=== PATIENT | male | born 1960 | race Caucasian/White ===

== ENCOUNTER 2017-11-02 04:02 | Emergency (ER) | payer OTHER, BC | END 2017-11-02 09:06 | disposition home or self-care (01) | LOC: E/R 04:02 | DX: J06.9 Acute upper respiratory infection, unspecified (principal); B88.0 Other acariasis | CPT/HCPCS: 99284; Z7502 ==

== ENCOUNTER 2019-06-12 15:35 | Inpatient (IN) | payer OTHER ==
[2019-06-12 20:04] LABS: ADD MAN DIFF? NO
[2019-06-12 20:13] LABS: BASOPHILS % 0.3 % (0.0-2.0); EOSINOPHILS % 0.3 % (0.0-7.0); HEMATOCRIT 35.8 % (42.0-52.0); HEMOGLOBIN 11.4 g/dl (14.0-18.0); LYMPHOCYTES % 7.7 % (15.0-51.0); MEAN CORPUSCULAR HEMOGLOBIN 28.6 pg (29.0-33.0); MEAN CORPUSCULAR HGB CONC 31.8 g/dl (32.0-37.0); MEAN CORPUSCULAR VOLUME 89.9 fl (82.0-101.0); MEAN PLATELET VOLUME 9.3 fl (7.4-10.4); MONOCYTES % 7.6 % (0.0-11.0); NEUTROPHIL # 10.9 10^3/ul (1.6-7.5); NEUTROPHILS % 83.6 % (39.0-77.0); PLATELET COUNT 286 10^3/UL (140-415); RED BLOOD COUNT 3.98 10^6/ul (4.70-6.10); RED CELL DISTRIBUTION WIDTH 14.1 % (11.5-14.5)
[2019-06-12 20:18] LABS: ALANINE AMINOTRANSFERASE 29 IU/L (13-69); ALBUMIN/GLOBULIN RATIO 0.78; ALKALINE PHOSPHATASE 143 IU/L (42-121); ANION GAP 7 (5-13); ASPARTATE AMINO TRANSFERASE 63 IU/L (15-46); BILIRUBIN,INDIRECT 0.5 mg/dl (0-1.1); BILIRUBIN,TOTAL 0.5 mg/dl (0.2-1.3); BLOOD UREA NITROGEN 10 mg/dl (7-20); CALCIUM 9.5 mg/dl (8.4-10.2); CARBON DIOXIDE 31 mmol/L (21-31); CHLORIDE 98 mmol/L (97-110); CREATININE 0.81 mg/dl (0.61-1.24); Estimated GFR > 60 mL/min (>60); GLUCOSE 117 mg/dl (70-220); POTASSIUM 3.9 mmol/L (3.5-5.1); SODIUM 136 mmol/L (135-144); TOTAL PROTEIN 9.1 g/dl (6.1-8.1)
[2019-06-12 20:26] LABS: INR 1.08; PROTIME 14.1 Sec (11.9-14.9); PT RATIO 1.1
[2019-06-12 20:27] LABS: PARTIAL THROMBOPLASTIN TIME 34.3 Sec (23.0-35.0)
[2019-06-12] MEDS: CEFEPIME 2GM/50 ML (PMX) 50 ML IVPB (20:31)
[2019-06-12] MEDS: VANCOMYCIN 1 GM (PMX) 250 ML IVPB (20:57)
[2019-06-12] MEDS ORDERED: ONDANSETRON 4 MG INJ IV (21:00)
[2019-06-12] MEDS ORDERED: NACL 0.9% 3 ML SYG IV (21:00)
[2019-06-12] MEDS ORDERED: VANCOMYCIN IV PER PHARMACY XX (21:00)
[2019-06-12] MEDS ORDERED: DOCUSATE SODIUM 100 MG CAP PO (21:00)
[2019-06-13] MEDS: ACETAMINOPHEN 325 MG TAB PO (03:20)
[2019-06-13] MEDS: morphine 4 MG/ML VIAL IV ×3 (05:00→23:22)
[2019-06-13 06:09] LABS: ADD MAN DIFF? NO
[2019-06-13 06:12] LABS: WHITE BLOOD COUNT 14.1 10^3/ul (4.8-10.8)
[2019-06-13 06:12] LABS: BASOPHILS % 0.2 % (0.0-2.0); EOSINOPHILS # 0.1 10^3/ul (0.0-0.5); EOSINOPHILS % 0.6 % (0.0-7.0); HEMATOCRIT 35.3 % (42.0-52.0); HEMOGLOBIN 11.2 g/dl (14.0-18.0); LYMPHOCYTES % 7.3 % (15.0-51.0); MEAN CORPUSCULAR HEMOGLOBIN 29.1 pg (29.0-33.0); MEAN CORPUSCULAR HGB CONC 31.7 g/dl (32.0-37.0); MEAN CORPUSCULAR VOLUME 91.7 fl (82.0-101.0); MEAN PLATELET VOLUME 9.5 fl (7.4-10.4); MONOCYTES % 6.8 % (0.0-11.0); NEUTROPHILS % 84.6 % (39.0-77.0); PLATELET COUNT 261 10^3/UL (140-415); RED BLOOD COUNT 3.85 10^6/ul (4.70-6.10); RED CELL DISTRIBUTION WIDTH 14.1 % (11.5-14.5)
[2019-06-13 06:47] LABS: ALANINE AMINOTRANSFERASE 35 IU/L (13-69); ALBUMIN 3.6 g/dl (3.3-4.9); ALBUMIN/GLOBULIN RATIO 0.78; ALKALINE PHOSPHATASE 146 IU/L (42-121); ANION GAP 7 (5-13); ASPARTATE AMINO TRANSFERASE 60 IU/L (15-46); BILIRUBIN,INDIRECT 0.5 mg/dl (0-1.1); BILIRUBIN,TOTAL 0.5 mg/dl (0.2-1.3); BLOOD UREA NITROGEN 9 mg/dl (7-20); CALCIUM 9.2 mg/dl (8.4-10.2); CARBON DIOXIDE 29 mmol/L (21-31); CHLORIDE 101 mmol/L (97-110); CREATININE 0.72 mg/dl (0.61-1.24); Estimated GFR > 60 mL/min (>60); GLUCOSE 130 mg/dl (70-220); MAGNESIUM 2.1 mg/dl (1.7-2.5); POTASSIUM 4.6 mmol/L (3.5-5.1); SODIUM 137 mmol/L (135-144); TOTAL PROTEIN 8.2 g/dl (6.1-8.1)
[2019-06-13] MEDS: VANCOMYCIN 1 GM 250 ML IVPB ×2 (10:13→21:31)
[2019-06-13] MEDS: BISACODYL (EC) 5 MG TAB PO (10:41)
[2019-06-13 12:39] LABS: C-REACTIVE PROTEIN 39.6 mg/dl (0.0-0.9)
[2019-06-13 13:38] LABS: ERYTHROCYTE SEDIMENTATION RATE 113 mm/Hr (0-20)
[2019-06-13] MEDS: CEFEPIME 1GM/50 ML (PMX) 50 ML IVPB ×2 (15:01→20:32)
[2019-06-13] MEDS: HYDROCODONE/APAP (5/325) TAB PO (20:40)
[2019-06-14] MEDS: morphine 4 MG/ML VIAL IV ×5 (06:06→23:39)
[2019-06-14] MEDS: HYDROCODONE/APAP (5/325) TAB PO ×2 (08:18→16:50)
[2019-06-14] MEDS: CEFEPIME 1GM/50 ML (PMX) 50 ML IVPB ×2 (08:19→20:29)
[2019-06-14] MEDS: ENOXAPARIN 40 MG/0.4 ML SYG SC (08:24)
[2019-06-14] MEDS: HYDROXYCHLOROQUINE 200 MG TAB PO (09:00)
[2019-06-14 09:35] LABS: ADD MAN DIFF? NO
[2019-06-14 09:39] LABS: BASOPHILS % 0.4 % (0.0-2.0); EOSINOPHILS # 0.2 10^3/ul (0.0-0.5); EOSINOPHILS % 1.5 % (0.0-7.0); HEMATOCRIT 36.8 % (42.0-52.0); LYMPHOCYTES # 1.1 10^3/ul (0.8-2.9); LYMPHOCYTES % 10.5 % (15.0-51.0); MEAN CORPUSCULAR HEMOGLOBIN 28.6 pg (29.0-33.0); MEAN CORPUSCULAR HGB CONC 32.6 g/dl (32.0-37.0); MEAN CORPUSCULAR VOLUME 87.8 fl (82.0-101.0); MEAN PLATELET VOLUME 9.2 fl (7.4-10.4); MONOCYTE # 0.5 10^3/ul (0.3-0.9); MONOCYTES % 4.5 % (0.0-11.0); NEUTROPHIL # 8.9 10^3/ul (1.6-7.5); NEUTROPHILS % 82.1 % (39.0-77.0); PLATELET COUNT 347 10^3/UL (140-415); RED BLOOD COUNT 4.19 10^6/ul (4.70-6.10); RED CELL DISTRIBUTION WIDTH 13.8 % (11.5-14.5)
[2019-06-14 09:39] LABS: WHITE BLOOD COUNT 10.8 10^3/ul (4.8-10.8)
[2019-06-14 09:50] LABS: HEMOGLOBIN A1C 5.7 % (0-5.9)
[2019-06-14 09:57] LABS: PHOSPHORUS 3.7 mg/dl (2.5-4.9)
[2019-06-14 09:57] LABS: MAGNESIUM 1.8 mg/dl (1.7-2.5)
[2019-06-14] MEDS: VANCOMYCIN 1 GM 250 ML IVPB ×2 (09:57→21:18)
[2019-06-14 09:58] LABS: ANION GAP 8 (5-13); BLOOD UREA NITROGEN 10 mg/dl (7-20); CALCIUM 9.3 mg/dl (8.4-10.2); CARBON DIOXIDE 27 mmol/L (21-31); CHLORIDE 102 mmol/L (97-110); CREATININE 0.67 mg/dl (0.61-1.24); Estimated GFR > 60 mL/min (>60); GLUCOSE 180 mg/dl (70-220); POTASSIUM 4.1 mmol/L (3.5-5.1); SODIUM 137 mmol/L (135-144)
[2019-06-14 18:01] LABS: BARBITURATES Negative (NEGATIVE); BENZODIAZEPINES Negative (NEGATIVE); CANNABINOIDS Positive (NEGATIVE); COCAINE Negative (NEGATIVE)
[2019-06-14 18:06] LABS: AMPHETAMINE/METHAMPHETAMINE Positive (NEGATIVE); OPIATES Positive (NEGATIVE)
[2019-06-14 20:54] LABS: VANCOMYCIN,TROUGH 8.7 ug/ml (10.0-20.0)
[2019-06-14] MEDS: HYDROCORTISONE 1% 28.35 GM OINT TOP (21:23)
[2019-06-14] MEDS: ACETAMINOPHEN 325 MG TAB PO (22:11)
[2019-06-15] MEDS: oxyCODONE (CR) 15 MG TAB [oxyCONTIN] PO (02:38)
[2019-06-15] MEDS: morphine 4 MG/ML VIAL IV (04:50)
[2019-06-15 05:06] LABS: ADD MAN DIFF? NO
[2019-06-15 05:12] LABS: BASOPHIL # 0.1 10^3/ul (0.0-0.1); BASOPHILS % 0.9 % (0.0-2.0); EOSINOPHILS # 0.2 10^3/ul (0.0-0.5); EOSINOPHILS % 3.4 % (0.0-7.0); HEMATOCRIT 40.4 % (42.0-52.0); HEMOGLOBIN 13.1 g/dl (14.0-18.0); LYMPHOCYTES # 1.2 10^3/ul (0.8-2.9); LYMPHOCYTES % 17.2 % (15.0-51.0); MEAN CORPUSCULAR HEMOGLOBIN 27.9 pg (29.0-33.0); MEAN CORPUSCULAR HGB CONC 32.4 g/dl (32.0-37.0); MEAN CORPUSCULAR VOLUME 86.1 fl (82.0-101.0); MONOCYTE # 0.6 10^3/ul (0.3-0.9); NEUTROPHIL # 4.9 10^3/ul (1.6-7.5); NEUTROPHILS % 68.9 % (39.0-77.0); PLATELET COUNT 402 10^3/UL (140-415); RED BLOOD COUNT 4.69 10^6/ul (4.70-6.10); RED CELL DISTRIBUTION WIDTH 13.8 % (11.5-14.5)
[2019-06-15 05:36] LABS: ANION GAP 7 (5-13); BLOOD UREA NITROGEN 10 mg/dl (7-20); CALCIUM 9.5 mg/dl (8.4-10.2); CARBON DIOXIDE 30 mmol/L (21-31); CHLORIDE 102 mmol/L (97-110); CREATININE 0.73 mg/dl (0.61-1.24); Estimated GFR > 60 mL/min (>60); GLUCOSE 111 mg/dl (70-220); POTASSIUM 4.2 mmol/L (3.5-5.1); SODIUM 139 mmol/L (135-144)
[2019-06-15] MEDS: VANCOMYCIN 1.25 GM/NS 250 ML 250 ML IVPB ×2 (06:05→18:54)
[2019-06-15] MEDS ORDERED: METHADONE (1 MG/ML 5 ML PO UD SYG) PO (08:00)
[2019-06-15] MEDS: ENOXAPARIN 40 MG/0.4 ML SYG SC (09:00)
[2019-06-15] MEDS: HYDROXYCHLOROQUINE 200 MG TAB PO (09:00)
[2019-06-15] MEDS: METHADONE 10 MG TAB PO (09:41)
[2019-06-15] MEDS: CEFEPIME 1GM/50 ML (PMX) 50 ML IVPB ×2 (09:43→21:33)
[2019-06-15] MEDS: HYDROCORTISONE 1% 28.35 GM OINT TOP (09:44)
[2019-06-15] MEDS ORDERED: HYDROmorphONE 1 MG/5 ML IV SYRINGE IV ×2 (16:30)
[2019-06-15] MEDS ORDERED: FENTAnyl 50 MCG/ML VIAL IV ×2 (16:30)
[2019-06-15] MEDS ORDERED: ONDANSETRON 4 MG INJ IV (16:30)
[2019-06-15] MEDS ORDERED: DESFLURANE 15 MIN (16:30)
[2019-06-15] MEDS ORDERED: ROPIVACAINE 0.2% 20 ML VIAL ×2 (16:31→16:52)
[2019-06-15] MEDS ORDERED: PROPOFOL 20 ML (16:31)
[2019-06-15] MEDS ORDERED: MIDAZOLAM 1 MG/ML 2 ML INJ (16:31)
[2019-06-15] MEDS ORDERED: FENTAnyl 50 MCG/ML VIAL (16:37)
[2019-06-15] MEDS ORDERED: METOCLOPRAMIDE 10 MG INJ (16:48)
[2019-06-15] MEDS: HYDROmorphONE 1 MG/5 ML IV SYRINGE IV (17:52)
[2019-06-15] MEDS ORDERED: EPHEDrine 25 MG/5 ML SYG (17:58)
[2019-06-15] MEDS: FENTAnyl 50 MCG/ML VIAL IV (18:33)
[2019-06-15] MEDS: ACETAMINOPHEN 325 MG TAB PO (21:37)
[2019-06-15] MEDS: HYDROmorphONE 1 MG/ML SYG IV (22:26)
[2019-06-16] MEDS: HYDROmorphONE 1 MG/ML SYG IV ×6 (01:44→20:07)
[2019-06-16] MEDS: VANCOMYCIN 1.25 GM/NS 250 ML 250 ML IVPB ×2 (05:49→17:42)
[2019-06-16 06:04] LABS: ADD MAN DIFF? NO
[2019-06-16 06:15] LABS: WHITE BLOOD COUNT 6.7 10^3/ul (4.8-10.8)
[2019-06-16 06:15] LABS: BASOPHILS % 0.6 % (0.0-2.0); EOSINOPHILS # 0.2 10^3/ul (0.0-0.5); EOSINOPHILS % 2.5 % (0.0-7.0); HEMATOCRIT 41.5 % (42.0-52.0); HEMOGLOBIN 13.1 g/dl (14.0-18.0); LYMPHOCYTES # 1.3 10^3/ul (0.8-2.9); LYMPHOCYTES % 19.3 % (15.0-51.0); MEAN CORPUSCULAR HGB CONC 31.6 g/dl (32.0-37.0); MEAN CORPUSCULAR VOLUME 88.7 fl (82.0-101.0); MEAN PLATELET VOLUME 9.1 fl (7.4-10.4); MONOCYTE # 0.6 10^3/ul (0.3-0.9); MONOCYTES % 8.6 % (0.0-11.0); NEUTROPHIL # 4.5 10^3/ul (1.6-7.5); NEUTROPHILS % 66.3 % (39.0-77.0); PLATELET COUNT 354 10^3/UL (140-415); RED BLOOD COUNT 4.68 10^6/ul (4.70-6.10); RED CELL DISTRIBUTION WIDTH 13.8 % (11.5-14.5)
[2019-06-16 06:35] LABS: ANION GAP 6 (5-13); BLOOD UREA NITROGEN 12 mg/dl (7-20); CALCIUM 9.1 mg/dl (8.4-10.2); CARBON DIOXIDE 31 mmol/L (21-31); CHLORIDE 102 mmol/L (97-110); CREATININE 0.71 mg/dl (0.61-1.24); Estimated GFR > 60 mL/min (>60); GLUCOSE 107 mg/dl (70-220); POTASSIUM 4.4 mmol/L (3.5-5.1); SODIUM 139 mmol/L (135-144)
[2019-06-16] MEDS: HYDROXYCHLOROQUINE 200 MG TAB PO (08:16)
[2019-06-16] MEDS: HYDROCORTISONE 1% 28.35 GM OINT TOP (08:17)
[2019-06-16] MEDS: METHADONE 10 MG TAB PO ×3 (08:17→20:54)
[2019-06-16] MEDS: ENOXAPARIN 40 MG/0.4 ML SYG SC (08:25)
[2019-06-16] MEDS: CEFEPIME 1GM/50 ML (PMX) 50 ML IVPB ×2 (10:42→20:54)
[2019-06-16] MEDS: POLYETHYLENE GLYCOL 17 GM PACKET PO ×2 (11:30→15:30)
[2019-06-16] MEDS: ACETAMINOPHEN 325 MG TAB PO (14:04)
[2019-06-16] MEDS ORDERED: DOCUSATE SODIUM 100 MG CAP PO (15:30)
[2019-06-16 17:19] LABS: VANCOMYCIN,TROUGH 13.3 ug/ml (10.0-20.0)
[2019-06-17] MEDS: HYDROmorphONE 1 MG/ML SYG IV ×5 (03:11→20:06)
[2019-06-17] MEDS: VANCOMYCIN 1.25 GM/NS 250 ML 250 ML IVPB ×2 (05:46→17:46)
[2019-06-17 06:18] LABS: ADD MAN DIFF? NO
[2019-06-17 06:26] LABS: BASOPHIL # 0.1 10^3/ul (0.0-0.1); BASOPHILS % 0.8 % (0.0-2.0); EOSINOPHILS # 0.3 10^3/ul (0.0-0.5); EOSINOPHILS % 3.6 % (0.0-7.0); HEMOGLOBIN 12.7 g/dl (14.0-18.0); LYMPHOCYTES # 1.3 10^3/ul (0.8-2.9); LYMPHOCYTES % 18.5 % (15.0-51.0); MEAN CORPUSCULAR HEMOGLOBIN 28.2 pg (29.0-33.0); MEAN CORPUSCULAR HGB CONC 31.8 g/dl (32.0-37.0); MEAN CORPUSCULAR VOLUME 88.9 fl (82.0-101.0); MEAN PLATELET VOLUME 9.5 fl (7.4-10.4); MONOCYTE # 0.5 10^3/ul (0.3-0.9); MONOCYTES % 6.7 % (0.0-11.0); NEUTROPHIL # 4.8 10^3/ul (1.6-7.5); NEUTROPHILS % 66.1 % (39.0-77.0); PLATELET COUNT 396 10^3/UL (140-415); RED CELL DISTRIBUTION WIDTH 13.8 % (11.5-14.5)
[2019-06-17 06:26] LABS: WHITE BLOOD COUNT 7.3 10^3/ul (4.8-10.8)
[2019-06-17 07:15] LABS: ANION GAP 8 (5-13); BLOOD UREA NITROGEN 13 mg/dl (7-20); CALCIUM 9.2 mg/dl (8.4-10.2); CARBON DIOXIDE 29 mmol/L (21-31); CHLORIDE 100 mmol/L (97-110); CREATININE 0.72 mg/dl (0.61-1.24); Estimated GFR > 60 mL/min (>60); GLUCOSE 134 mg/dl (70-220); POTASSIUM 4.2 mmol/L (3.5-5.1); SODIUM 137 mmol/L (135-144)
[2019-06-17] MEDS: HYDROXYCHLOROQUINE 200 MG TAB PO ×2 (08:44→08:46)
[2019-06-17] MEDS: METHADONE 10 MG TAB PO ×3 (08:44→21:05)
[2019-06-17] MEDS: POLYETHYLENE GLYCOL 17 GM PACKET PO ×2 (08:48→10:30)
[2019-06-17] MEDS: CEFEPIME 1GM/50 ML (PMX) 50 ML IVPB ×2 (08:50→21:05)
[2019-06-17] MEDS: ENOXAPARIN 40 MG/0.4 ML SYG SC (08:52)
[2019-06-17] MEDS: HYDROCORTISONE 1% 28.35 GM OINT TOP (08:53)
[2019-06-17] MEDS: ACETAMINOPHEN 325 MG TAB PO (10:30)
[2019-06-18] MEDS: HYDROmorphONE 1 MG/ML SYG IV ×6 (01:23→21:11)
[2019-06-18] MEDS: VANCOMYCIN 1.25 GM/NS 250 ML 250 ML IVPB (06:14)
[2019-06-18 06:30] LABS: ADD MAN DIFF? NO
[2019-06-18 06:37] LABS: ABNORMAL IP MESSAGE 1; BASOPHIL # 0.1 10^3/ul (0.0-0.1); BASOPHILS % 1.4 % (0.0-2.0); EOSINOPHILS # 0.2 10^3/ul (0.0-0.5); EOSINOPHILS % 2.9 % (0.0-7.0); HEMOGLOBIN 12.9 g/dl (14.0-18.0); LYMPHOCYTES # 1.5 10^3/ul (0.8-2.9); LYMPHOCYTES % 18.8 % (15.0-51.0); MEAN CORPUSCULAR HEMOGLOBIN 28.5 pg (29.0-33.0); MEAN CORPUSCULAR HGB CONC 31.5 g/dl (32.0-37.0); MEAN CORPUSCULAR VOLUME 90.5 fl (82.0-101.0); MEAN PLATELET VOLUME 9.1 fl (7.4-10.4); MONOCYTE # 0.7 10^3/ul (0.3-0.9); MONOCYTES % 8.2 % (0.0-11.0); NEUTROPHILS % 62.1 % (39.0-77.0); PLATELET COUNT 407 10^3/UL (140-415); POSITIVE DIFF @See below; RED BLOOD COUNT 4.53 10^6/ul (4.70-6.10)
[2019-06-18 07:01] LABS: ANION GAP 6 (5-13); BLOOD UREA NITROGEN 14 mg/dl (7-20); CALCIUM 9.3 mg/dl (8.4-10.2); CARBON DIOXIDE 32 mmol/L (21-31); CHLORIDE 100 mmol/L (97-110); CREATININE 0.83 mg/dl (0.61-1.24); Estimated GFR > 60 mL/min (>60); GLUCOSE 109 mg/dl (70-220); POTASSIUM 4.4 mmol/L (3.5-5.1); SODIUM 138 mmol/L (135-144)
[2019-06-18 07:41] LABS: BAND NEUTROPHILS #M 0.4 10^3/ul (0.0-0.6); BAND NEUTROPHILS % (M) 6 % (0-4); BASOPHIL #M 0.1 10^3/ul (0.0-0.0); BASOPHILS % (M) 2 % (0-2); EOSINOPHILS % (M) 5 % (0-7); LYMPHOCYTES #M 1.5 10^3/ul (0.8-2.9); LYMPHOCYTES % (M) 19 % (15-51); MONOCYTE #M 0.6 10^3/ul (0.3-0.9); MONOCYTES % (M) 8 % (0-11); PLATELET ESTIMATE NORMAL; POLYCHROMASIA 1+ (0-0); PROMYELOCYTES % (M) 1 % (0-0); SEG NEUT #M 4.8 10^3/ul (1.6-7.5); SEGMENTED NEUTROPHILS (M) % 59 % (39-77); SMUDGE%M 8 % (0-0)
[2019-06-18] MEDS: METHADONE 10 MG TAB PO ×3 (08:29→22:47)
[2019-06-18] MEDS: CEFEPIME 1GM/50 ML (PMX) 50 ML IVPB (08:30)
[2019-06-18] MEDS: POLYETHYLENE GLYCOL 17 GM PACKET PO ×2 (08:30)
[2019-06-18] MEDS: HYDROXYCHLOROQUINE 200 MG TAB PO (08:31)
[2019-06-18] MEDS: ENOXAPARIN 40 MG/0.4 ML SYG SC (08:33)
[2019-06-18] MEDS: HYDROCORTISONE 1% 28.35 GM OINT TOP (08:34)
[2019-06-18] MEDS: ACETAMINOPHEN 325 MG TAB PO (10:37)
[2019-06-18] MEDS: TRIMETHOPRIM/SULFAMETHOX (DS) TAB PO ×2 (16:11→22:47)
[2019-06-19] MEDS: HYDROmorphONE 1 MG/ML SYG IV ×6 (04:28→21:23)
[2019-06-19 06:17] LABS: ADD MAN DIFF? NO
[2019-06-19 06:24] LABS: WHITE BLOOD COUNT 8.7 10^3/ul (4.8-10.8)
[2019-06-19 06:24] LABS: ABNORMAL IP MESSAGE 1; BASOPHIL # 0.1 10^3/ul (0.0-0.1); BASOPHILS % 0.9 % (0.0-2.0); EOSINOPHILS # 0.3 10^3/ul (0.0-0.5); HEMATOCRIT 42.6 % (42.0-52.0); HEMOGLOBIN 13.5 g/dl (14.0-18.0); LYMPHOCYTES # 1.8 10^3/ul (0.8-2.9); LYMPHOCYTES % 20.6 % (15.0-51.0); MEAN CORPUSCULAR HEMOGLOBIN 28.4 pg (29.0-33.0); MEAN CORPUSCULAR HGB CONC 31.7 g/dl (32.0-37.0); MEAN CORPUSCULAR VOLUME 89.7 fl (82.0-101.0); MEAN PLATELET VOLUME 9.3 fl (7.4-10.4); MONOCYTE # 0.6 10^3/ul (0.3-0.9); MONOCYTES % 6.7 % (0.0-11.0); NEUTROPHIL # 5.4 10^3/ul (1.6-7.5); NEUTROPHILS % 62.1 % (39.0-77.0); PLATELET COUNT 446 10^3/UL (140-415); POSITIVE DIFF @See below; RED BLOOD COUNT 4.75 10^6/ul (4.70-6.10); RED CELL DISTRIBUTION WIDTH 14.1 % (11.5-14.5)
[2019-06-19 06:48] LABS: ANION GAP 10 (5-13); BLOOD UREA NITROGEN 17 mg/dl (7-20); CALCIUM 9.7 mg/dl (8.4-10.2); CARBON DIOXIDE 31 mmol/L (21-31); CHLORIDE 96 mmol/L (97-110); CREATININE 1.05 mg/dl (0.61-1.24); Estimated GFR > 60 mL/min (>60); GLUCOSE 100 mg/dl (70-220); POTASSIUM 4.7 mmol/L (3.5-5.1); SODIUM 137 mmol/L (135-144)
[2019-06-19] MEDS: ACETAMINOPHEN 325 MG TAB PO ×2 (08:01→22:27)
[2019-06-19] MEDS: TRIMETHOPRIM/SULFAMETHOX (DS) TAB PO ×2 (08:58→20:43)
[2019-06-19] MEDS: METHADONE 10 MG TAB PO ×3 (08:58→20:45)
[2019-06-19] MEDS: HYDROXYCHLOROQUINE 200 MG TAB PO (09:00)
[2019-06-19] MEDS: POLYETHYLENE GLYCOL 17 GM PACKET PO ×2 (09:00)
[2019-06-19] MEDS: ENOXAPARIN 40 MG/0.4 ML SYG SC (09:00)
[2019-06-19] MEDS: HYDROCORTISONE 1% 28.35 GM OINT TOP (09:00)
[2019-06-19 10:59] LABS: ANISOCYTOSIS 1+ (0-0); BAND NEUTROPHILS #M 0.9 10^3/ul (0.0-0.6); BAND NEUTROPHILS % (M) 11 % (0-4); BASOPHIL #M 0.1 10^3/ul (0.0-0.0); BASOPHILS % (M) 2 % (0-2); EOSINOPHILS % (M) 4 % (0-7); GIANT THROMBO% (M) 1 % (0-0); LYMPHOCYTES #M 1.6 10^3/ul (0.8-2.9); LYMPHOCYTES % (M) 19 % (15-51); MONOCYTE #M 0.8 10^3/ul (0.3-0.9); MONOCYTES % (M) 10 % (0-11); MYELOCYTES #M 0.2 10^3/ul (0.0-0.0); MYELOCYTES % (M) 3 % (0-0); PLATELET ESTIMATE NORMAL; POIKILOCYTOSIS 1+ (0-0); POLYCHROMASIA 1+ (0-0); REACTIVE LYMPHOCYTES #M 1.1 10^3/ul (0.0-0.0); REACTIVE LYMPHOCYTES% (M) 13 % (0-0); SEG NEUT #M 3.4 10^3/ul (1.6-7.5); SEGMENTED NEUTROPHILS (M) % 38 % (39-77); SMUDGE%M 10 % (0-0)
[2019-06-20] MEDS: HYDROmorphONE 1 MG/ML SYG IV ×6 (02:51→20:36)
[2019-06-20 06:48] LABS: ADD MAN DIFF? NO
[2019-06-20 06:57] LABS: WHITE BLOOD COUNT 7.9 10^3/ul (4.8-10.8)
[2019-06-20 06:57] LABS: ABNORMAL IP MESSAGE 1; BASOPHIL # 0.1 10^3/ul (0.0-0.1); BASOPHILS % 1.5 % (0.0-2.0); EOSINOPHILS # 0.3 10^3/ul (0.0-0.5); EOSINOPHILS % 3.9 % (0.0-7.0); HEMATOCRIT 43.4 % (42.0-52.0); HEMOGLOBIN 13.6 g/dl (14.0-18.0); LYMPHOCYTES # 1.8 10^3/ul (0.8-2.9); MEAN CORPUSCULAR HEMOGLOBIN 28.5 pg (29.0-33.0); MEAN CORPUSCULAR HGB CONC 31.3 g/dl (32.0-37.0); MEAN PLATELET VOLUME 9.2 fl (7.4-10.4); MONOCYTE # 0.7 10^3/ul (0.3-0.9); MONOCYTES % 8.6 % (0.0-11.0); NEUTROPHIL # 4.5 10^3/ul (1.6-7.5); NEUTROPHILS % 56.1 % (39.0-77.0); PLATELET COUNT 422 10^3/UL (140-415); POSITIVE DIFF @See below; RED BLOOD COUNT 4.77 10^6/ul (4.70-6.10); RED CELL DISTRIBUTION WIDTH 14.2 % (11.5-14.5)
[2019-06-20 07:37] LABS: ANION GAP 11 (5-13); BLOOD UREA NITROGEN 20 mg/dl (7-20); CALCIUM 9.8 mg/dl (8.4-10.2); CARBON DIOXIDE 29 mmol/L (21-31); CHLORIDE 98 mmol/L (97-110); Estimated GFR > 60 mL/min (>60); GLUCOSE 95 mg/dl (70-220); POTASSIUM 5.1 mmol/L (3.5-5.1); SODIUM 138 mmol/L (135-144)
[2019-06-20] MEDS: POLYETHYLENE GLYCOL 17 GM PACKET PO ×2 (09:00→09:01)
[2019-06-20] MEDS: HYDROCORTISONE 1% 28.35 GM OINT TOP (09:00)
[2019-06-20] MEDS: HYDROXYCHLOROQUINE 200 MG TAB PO (09:01)
[2019-06-20] MEDS: METHADONE 10 MG TAB PO ×3 (09:01→20:35)
[2019-06-20] MEDS: TRIMETHOPRIM/SULFAMETHOX (DS) TAB PO ×2 (09:01→20:35)
[2019-06-20] MEDS: ENOXAPARIN 40 MG/0.4 ML SYG SC (09:05)
[2019-06-20 09:30] LABS: ANISOCYTOSIS 1+ (0-0); BAND NEUTROPHILS #M 0.3 10^3/ul (0.0-0.6); BAND NEUTROPHILS % (M) 5 % (0-4); BASOPHILS % (M) 1 % (0-2); EOSINOPHILS % (M) 4 % (0-7); LYMPHOCYTES #M 1.1 10^3/ul (0.8-2.9); LYMPHOCYTES % (M) 15 % (15-51); MONOCYTE #M 0.7 10^3/ul (0.3-0.9); MONOCYTES % (M) 9 % (0-11); MYELOCYTES #M 0.2 10^3/ul (0.0-0.0); MYELOCYTES % (M) 3 % (0-0); PLATELET ESTIMATE NORMAL; POLYCHROMASIA 1+ (0-0); PROMYELOCYTES % (M) 1 % (0-0); REACTIVE LYMPHOCYTES #M 0.8 10^3/ul (0.0-0.0); REACTIVE LYMPHOCYTES% (M) 11 % (0-0); SEG NEUT #M 4.1 10^3/ul (1.6-7.5); SEGMENTED NEUTROPHILS (M) % 51 % (39-77); SMUDGE%M 1 % (0-0)
[2019-06-20] MEDS: ACETAMINOPHEN 325 MG TAB PO (09:44)
[2019-06-21] MEDS: HYDROmorphONE 1 MG/ML SYG IV ×5 (00:24→19:44)
[2019-06-21] MEDS: ACETAMINOPHEN 325 MG TAB PO ×2 (02:42→20:40)
[2019-06-21 05:21] LABS: ADD MAN DIFF? NO
[2019-06-21 05:31] LABS: WHITE BLOOD COUNT 9.7 10^3/ul (4.8-10.8)
[2019-06-21 05:31] LABS: BASOPHIL # 0.1 10^3/ul (0.0-0.1); BASOPHILS % 0.8 % (0.0-2.0); EOSINOPHILS # 0.2 10^3/ul (0.0-0.5); HEMATOCRIT 42.4 % (42.0-52.0); HEMOGLOBIN 13.2 g/dl (14.0-18.0); LYMPHOCYTES # 2.1 10^3/ul (0.8-2.9); LYMPHOCYTES % 21.8 % (15.0-51.0); MEAN CORPUSCULAR HEMOGLOBIN 28.4 pg (29.0-33.0); MEAN CORPUSCULAR HGB CONC 31.1 g/dl (32.0-37.0); MEAN CORPUSCULAR VOLUME 91.2 fl (82.0-101.0); MEAN PLATELET VOLUME 9.3 fl (7.4-10.4); MONOCYTE # 0.8 10^3/ul (0.3-0.9); MONOCYTES % 8.2 % (0.0-11.0); NEUTROPHIL # 6.1 10^3/ul (1.6-7.5); NEUTROPHILS % 63.4 % (39.0-77.0); PLATELET COUNT 445 10^3/UL (140-415); RED BLOOD COUNT 4.65 10^6/ul (4.70-6.10); RED CELL DISTRIBUTION WIDTH 14.6 % (11.5-14.5)
[2019-06-21 05:56] LABS: ANION GAP 13 (5-13); BLOOD UREA NITROGEN 23 mg/dl (7-20); CALCIUM 9.6 mg/dl (8.4-10.2); CARBON DIOXIDE 28 mmol/L (21-31); CHLORIDE 97 mmol/L (97-110); CREATININE 1.17 mg/dl (0.61-1.24); Estimated GFR > 60 mL/min (>60); GLUCOSE 126 mg/dl (70-220); POTASSIUM 4.3 mmol/L (3.5-5.1); SODIUM 138 mmol/L (135-144)
[2019-06-21] MEDS: HYDROXYCHLOROQUINE 200 MG TAB PO ×2 (08:52→08:59)
[2019-06-21] MEDS: METHADONE 10 MG TAB PO ×3 (08:52→20:37)
[2019-06-21] MEDS: TRIMETHOPRIM/SULFAMETHOX (DS) TAB PO ×2 (08:52→20:37)
[2019-06-21] MEDS: POLYETHYLENE GLYCOL 17 GM PACKET PO (08:53)
[2019-06-21] MEDS: HYDROCORTISONE 1% 28.35 GM OINT TOP (08:54)
[2019-06-21] MEDS: ENOXAPARIN 40 MG/0.4 ML SYG SC (08:55)
[2019-06-21] MEDS: KETOROLAC 30 MG INJ IV (21:48)
[2019-06-22] MEDS: HYDROXYCHLOROQUINE 200 MG TAB PO (09:00)
[2019-06-22] MEDS: POLYETHYLENE GLYCOL 17 GM PACKET PO (09:00)
[2019-06-22] MEDS: CHOLECALCIFEROL 2,000 UNIT CAP PO (09:03)
[2019-06-22] MEDS: METHADONE 10 MG TAB PO ×3 (09:03→20:49)
[2019-06-22] MEDS: TRIMETHOPRIM/SULFAMETHOX (DS) TAB PO ×2 (09:07→20:49)
[2019-06-22] MEDS: HYDROmorphONE 1 MG/ML SYG IV ×3 (09:07→20:52)
[2019-06-22] MEDS: HYDROCORTISONE 1% 28.35 GM OINT TOP (09:15)
[2019-06-22] MEDS: ENOXAPARIN 40 MG/0.4 ML SYG SC (09:19)
[2019-06-22] MEDS: ACETAMINOPHEN 325 MG TAB PO (13:12)
[2019-06-22] MEDS: NYSTATIN 15 GM OINT TOP ×2 (14:29→20:49)
[2019-06-23] MEDS: HYDROmorphONE 1 MG/ML SYG IV ×5 (00:31→20:41)
[2019-06-23] MEDS: POLYETHYLENE GLYCOL 17 GM PACKET PO ×2 (00:34→09:00)
[2019-06-23 06:27] LABS: ANION GAP 11 (5-13); BLOOD UREA NITROGEN 34 mg/dl (7-20); CALCIUM 9.4 mg/dl (8.4-10.2); CARBON DIOXIDE 27 mmol/L (21-31); CHLORIDE 100 mmol/L (97-110); CREATININE 1.25 mg/dl (0.61-1.24); Estimated GFR 59 mL/min (>60); GLUCOSE 87 mg/dl (70-220); POTASSIUM 4.9 mmol/L (3.5-5.1); SODIUM 138 mmol/L (135-144)
[2019-06-23] MEDS: HYDROCORTISONE 1% 28.35 GM OINT TOP (09:00)
[2019-06-23] MEDS: NYSTATIN 15 GM OINT TOP ×2 (09:00→20:23)
[2019-06-23] MEDS: HYDROXYCHLOROQUINE 200 MG TAB PO (09:00)
[2019-06-23] MEDS: TRIMETHOPRIM/SULFAMETHOX (DS) TAB PO (09:19)
[2019-06-23] MEDS: CHOLECALCIFEROL 2,000 UNIT CAP PO (09:20)
[2019-06-23] MEDS: METHADONE 10 MG TAB PO ×3 (09:21→20:23)
[2019-06-23] MEDS: ENOXAPARIN 40 MG/0.4 ML SYG SC (09:24)
[2019-06-23] MEDS: DOXYCYCLINE 100 MG TAB PO ×2 (14:12→20:23)
[2019-06-24] MEDS: HYDROmorphONE 1 MG/ML SYG IV ×4 (03:30→21:21)
[2019-06-24] MEDS: HYDROCORTISONE 1% 28.35 GM OINT TOP (09:00)
[2019-06-24] MEDS: NYSTATIN 15 GM OINT TOP ×2 (09:00→19:45)
[2019-06-24] MEDS: HYDROXYCHLOROQUINE 200 MG TAB PO (09:00)
[2019-06-24] MEDS: POLYETHYLENE GLYCOL 17 GM PACKET PO (09:00)
[2019-06-24] MEDS: METHADONE 10 MG TAB PO ×3 (09:36→20:42)
[2019-06-24] MEDS: DOXYCYCLINE 100 MG TAB PO ×2 (09:36→20:42)
[2019-06-24] MEDS: CHOLECALCIFEROL 2,000 UNIT CAP PO (09:36)
[2019-06-24] MEDS: ENOXAPARIN 40 MG/0.4 ML SYG SC (09:38)
[2019-06-25] MEDS: HYDROmorphONE 1 MG/ML SYG IV ×2 (02:01→06:41)
[2019-06-25] MEDS ORDERED: DIPHENHYDRAMINE 50 MG INJ IV (07:00)
[2019-06-25] MEDS: ACETAMINOPHEN 325 MG TAB PO (07:43)
[2019-06-25] MEDS: NYSTATIN 15 GM OINT TOP (09:00)
[2019-06-25] MEDS: HYDROCORTISONE 1% 28.35 GM OINT TOP (09:00)
[2019-06-25] MEDS: POLYETHYLENE GLYCOL 17 GM PACKET PO (09:01)
[2019-06-25] MEDS: CHOLECALCIFEROL 2,000 UNIT CAP PO (09:01)
[2019-06-25] MEDS: DOXYCYCLINE 100 MG TAB PO (09:01)
[2019-06-25] MEDS: HYDROXYCHLOROQUINE 200 MG TAB PO (09:01)
[2019-06-25] MEDS: ENOXAPARIN 40 MG/0.4 ML SYG SC (09:08)
[2019-06-25] MEDS ORDERED: DIPHENHYDRAMINE 25 MG CAP PO (10:00)
== END 2019-06-25 18:18 | disposition home or self-care (01) | DRG 574 ==
LOC: E/R 15:35 → 2NE 06-14 09:00
PROC: 0JBQ0ZZ Excision of Right Foot Subcutaneous Tissue and Fascia, Open Approach (ICD-10-PCS; principal; 2019-06-15 16:30)
PROC: 0HRMXK3 Replacement of Right Foot Skin with Nonautologous Tissue Substitute, Full Thickness, External Approach (ICD-10-PCS; 2019-06-15 16:30)
DX: L03.115 Cellulitis of right lower limb (principal); L97.819 Non-pressure chronic ulcer of other part of right lower leg with unspecified severity; N17.9 Acute kidney failure, unspecified; F11.20 Opioid dependence, uncomplicated; D63.8 Anemia in other chronic diseases classified elsewhere; G89.29 Other chronic pain; I87.2 Venous insufficiency (chronic) (peripheral); M35.3 Polymyalgia rheumatica; M32.9 Systemic lupus erythematosus, unspecified; R60.0 Localized edema; Z59.0 Homelessness; Z86.718 Personal history of other venous thrombosis and embolism
CPT/HCPCS: 71045; 73590; 73630; 80048; 80053; 80202; 80307; 82306; 82652; 83036; 83735; 84100; 85025; 85610; 85651; 85730; 86140; 87040-91; 87070; 87075; 93971; 96374; 97162; 97530; 99285-25